=== PATIENT | male | born 1990 | race Caucasian/White ===

== ENCOUNTER 2024-07-17 12:37 | Outpatient (AMB) | payer OTHER, SELFPAY ==
--- OUTSIDE RECORDS SUMMARY | 2024-07-17 12:38 | XMS_ITS | Continuity of Care Document ---
Author Organization [facility] em Address Unknown Care Team Providers Care Revenue Accounting Manager Name Role Phone Rosanne Tuttle MD Primary Care Physician ( [phone] Encounter [facility] [place] Date(s): 04/30/23 - 06/04/23 [facility] Attending Physician: Bessy Owen MD Admitting Physician: Bessy Owen MD Referring Physician: Lien Palomo NP Allergies, Adverse Reactions, Alerts Substance Reaction Severity Status cortisone Form of cyst Active Immunizations Given and Recorded Vaccine Date Status Refusal Reason tetanus/diphtheria/pertussis, acel(Tdap) 07/10/10 Given Medications Allopurinol Refills 0, Maintenance, 12/25/21 8:49:00 EST, Partial fill upon patient request if the prescriptionis for a schedule II opioid drug. Start Date: 12/25/21 Status: Ordered Amoxicillin By Mouth, Maintenance, 5 days, 12/25/21 8:49:00 EST Start Date: 12/25/21 Status: Ordered levothyroxine 0.025 mg oral tablet 1 tablet = 25 mcg, By Mouth, Daily, 0 Refills, Maintenance, 12/25/21 8:48:00 EST, Partial fill uponpatient request if the prescription is for a schedule II opioid drug. Start Date: 12/25/21 Status: Ordered Problem List Condition Confirmation Course Effective Dates Status H ealth Status Informant Carbuncle and furuncle Confirmed Active Adult hypothyroidism Confirmed Active Obese class II Confirmed Active Social History Social History Type Response Smoking Status 5-9 cigarettes (betw een 1/4 to 1/2 pack)/day in last 30 days entered on: 02/06/19 Sex Patient Care team information Care Team Personnel Name: Rosanne Tuttle MD Position: S Physician - Primary Care Member Role: PCP Address: Address: [address] [place] [address] [place] [address]- Care Team Related Persons Name: SHREE DIETRICH Address: home [address] [place] [address] Name: BRADLEY MEYER Address: home [address] [place] [address]
--- OUTSIDE RECORDS SUMMARY | 2024-07-17 12:38 | XMS_ITS | Continuity of Care Document ---
Author Organization [facility] Address [address] [place] [address]- Care Team Providers Care Crystal Evaluator Name Role Phone Parag PETER, Rosanne Mcmullen Primary Care Physician Encounter [facility] [place] Date(s): 12/17/21 - 01/16/22 [facility] [address] [place] [address]- Allergies, Adverse Reactions, Alerts Substance Reaction Severity [...] Date: 12/25/21 Status: Ordered Problem List Condition Effective Dates Status Health Status Inform ant Carbuncle and furuncle(Confirmed) Active Adult hypothyroidism(Confirmed) Active Obese class II(Confirmed) Active Social History Social History Type Response Smoking Status 5-9 cigarettes (betw een 1/4 to 1/2 pack)/day in last 30 days entered on: 02/06/19 Sex
--- OUTSIDE RECORDS SUMMARY | 2024-07-17 12:38 | XMS_ITS | Continuity of Care Document ---
Author Organization [facility] Address [address] [place] [address]- Care Team Providers Care Wire Wheeler Name Role Phone Parag PETER, Rosanne Mcmullen Primary Care Physician Encounter [facility] [place] Date(s): 12/25/21 - 01/24/22 [facility] [address] [place] [id number] Attending Physician: Maicol Delgado Admitting Physician: Maicol Delgado Referring Physician: AdmtrMaicol Allergies, Adverse Reactions, Alerts Substance Reaction Severity [...]
--- OUTSIDE RECORDS SUMMARY | 2024-07-17 12:38 | XMS_ITS | Continuity of Care Document ---
Author Organization [facility] em Address Unknown Care Team Providers Care Machine Oiler Name Role Phone Rosanne Tuttle MD Primary Care Physician [place] [facility] [place]s): 05/05/23 - 06/04/23 [facility] Attending Physician: Maicol Delgado Admitting Physician: Maicol Delgado Referring Physician: Maicol Delgado Allergies, Adverse Reactions, Alerts Substance Reaction Severity [...] Primary Care Member Role: PCP Address: Address: [address] [place] [address] [address] [place] [address]- Care Team Related Persons Name: SHREE DIETRICH Address: home [address] [place] [address] Name: BRADLEY MEYER Address: [address] [place] [address]
--- NOTE | 2024-07-17 12:42 | MHC.OFFWIV ---
Intake Vital Signs 07/17/24 12:49 Height 6 ft 7 in Weight 328 lb 6 oz BMI 37.0 BP 142/84 H Blood Pressure Location Rt brachial Position Sitting Respiration 16 Pulse 72 Pulse Source Pulse Oximeter Temp 97.9 F Temp Source Oral Pulse Oximetry (%) 98 Oxygen Delivery Method Room Air Intake Visit Reasons: est/ cold symptoms/chest congestion Intake Note: Patient complaining of a cold, coughing, runny nose, coughing up green phlegm, bodyaches, fatigue x 1 week and patient also took a covid test at home and was negative on wednesday. Allergies cortisone Allergy (Severe, Verified 07/17/24 13:05) Hives Medication List - Last Reconciled 07/17/24 by Kavita Spence, LINSEED OIL REFINER- levothyroxine 125 mcg PO DAILY valsartan 80 mg PO DAILY HPI HPI Comments History of Present Illness Details 34-year-old male everyday smoker here today for complaints of upper respiratory symptoms that started about 1 week ago. Sudden onset nasal drainage , sore throat, fatigue. Sx have mildly improved since onset but cont to feel sick Today most bothersome sx is bloody nasal drainage with thick purulent discharge, productive cough Endorses some pain in his mid chest with coughing Using mucinex, sudafed and supportive care w/o relief Home COVID test negative x3 Exam: Awake alert NAD mildly ill appearing Sclera and conjunctiva clear bilat Nares blood-tinged mucoid discharge, turbinates pale and edematous, no sinus tenderness with palpation bilat TM intact and clear bilat MMM, pharynx with postnasal drip RRR LS Ins/exp wheeze, coarse throughout [phone] [facility] [place] Plan: Viral swab obtained today negative Stat chest x-ray negative Pt called with results at 1630. Tx with augementin, tessalon and Albuterol. Smoking cessation Edu to fu if no improvement or worsening of his sx. This note is constructed using voice recognition software. While every effort has been made to ensure accuracy in recycling crew supervisor, still errors may have been included Sometimes, these errors may affect the content or meaning of the given sentence . Total time spent caring for the patient today was 30 minutes. This includes time spent before the visit reviewing the chart, time spent during the visit, and time spent after the visit on documentation Physical Exam Vital Signs: Last Vital Signs Temp 97.9 F 07/17/24 12:49 Pulse 72 07/17/24 12:49 Resp 16 07/17/24 12:49 BP 142/84 H 07/17/24 12:49 Pulse Ox 98 07/17/24 12:49 Oxygen Delivery Method Room Air 07/17/24 12:49 BMI result Body Mass Index 37.0 Results Reviewed Results Reviewed: [facility] Primary Care [facility] [place] [address] XRay Report Signed Patient: Mani Fisher MR#: [id number] : 1990 Acct:[id number] Age/Sex: 34 / M ADM Date: 07/17/24 [facility]: Kavita HAMILTON Ordering Physician: Kavita Spence Date of Service: 07/17/24 Procedure(s): XR chest 2V Accession Number(s): [id number] cc: Kavita Spence~ EXAMINATION: XR CHEST CLINICAL INFORMATION: Other specified symptoms and signs involving the circulatory COMPARISON: None available. TECHNIQUE: 2 views of the chest were obtained. FINDINGS: No significant abnormality is noted involving the heart, lungs, mediastinum, bony thorax or soft tissues. XR/XR chest 2V IMPRESSION: Unremarkable examination. Electronically signed by: Alonso Wheat MD 07/17/2024 03:29 PM EDT Dictated By: Alonso Wheat MD Signed By: <Electronically signed by Alonso Wheat MD in OV> 07/17/24 1529 DD/ 1358 TD/TT: 07/17/24 1405 Lockstitcher: ROSALES RUN: 07/17/24 1629 PAGE 1 [facility] [address] [place] [id number] Rental Clerk Tool And Equipment: Sha Gee M.D. Specimen Inquiry Name: Mani Fisher Age/Sex: 34/M : 1990 Unit#: [id number] Attend Dr: Kavita SpenceP-BC Re07/17/24 Status: REG REF [facility] Disch: SPEC : [id number] ANDREA: 07/17/24 STATUS: COMP REQ : [id number] RECD: 07/17/24-[address] [facility] DR: Kavita Spence LINSEED OIL REFINER-BC COMP: 07/17/24 ENTERED: 07/17/[address] [facility] DR: ORDERED: SARS/FLU/RSV Test Result Flag Reference Influenza A PCR NEGATIVE Negative Influenza B PCR NEGATIVE Negative RSV RNA QualPCR NEGATIVE Negative SARSCOV2 RT-PCR NEGATIVE Negative All test results must be correlated with clinical findings. Negative results do not preclude SARS-CoV2, influenza A virus, influenza B virus and/or RSV infection and should not be used as the sole basis for treatment or other patient management decisions. Negative results must be combined with clinical observations, patient history, and epidemiological information. This test has not been evaluated for monitoring treatment of infection. This test has been authorized by the FDA under an Emergency Use Authorization (EUA) for use by authorized laboratories. Testing performed on the [employer] GeneXpert utilizing real-time RT-PCR. All SARS CoV2 and positive influenza A/B results are reported to [facility]. END OF REPORT Assessment & Plan Assessment & Plan (1) Acute bacterial sinusitis: Code(s): J01.90 - Acute sinusitis, unspecified; B96.89 - Other specified bacterial agents as the cause of diseases classified elsewhere Plan: . (2) URI (upper respiratory infection): Code(s): J06.9 - Acute upper respiratory infection, unspecified Qualifiers: URI type: unspecified viral URI Qualified Code(s): J06.9 - Acute upper respiratory infection, unspecified Plan: . (3) Tobacco dependence: Code(s): F17.200 - Nicotine dependence, unspecified, uncomplicated Plan: . Orders: Orders SARS-CoV2/FLU/RSV Today R09.89 - Other specified symptoms and signs involving the circulatory and respiratory systems XR chest 2V Today R09.89 - Other specified symptoms and signs involving the circulatory and respiratory systems Medications: New benzonatate 100 mg PO TID 10 days PRN 30 caps 1RF cough amoxicillin-pot clavulanate 875-125 mg 1 tab PO BID 7 days 14 tabs 0RF albuterol sulfate 90 mcg/actuation 2 puffs inhalation Q4-6H 30 days PRN 8.5 grams 0RF shortness of breath or wheezing Patient Instructions: Smoking Cessation How to Quit There are a lot of ways to quit smoking and many resources to help you. Family members, friends, and co-workers may be supportive or encouraging, but to be successful the desire and commitment to quit must be your own. Most people who have been able to successfully quit smoking made at least one unsuccessful attempt in the past. Try not to view past attempts to quit as failures, but rather as learning experiences. Stopping smoking or using smokeless tobacco is difficult, but anyone can do it. Know the symptoms to expect when you stop. Common symptoms include: ? An intense craving for nicotine ? Anxiety, tension, restlessness, frustration, or impatience ? Difficulty concentrating ? Drowsiness or trouble sleeping, as well as bad dreams and nightmares ? Drowsiness and trouble sleeping ? Headaches ? Increased appetite and weight gain ? Irritability or depression How severe your symptoms are depends on how long you smoked and how many cigarettes you smoked each day. Feel ready to quit? ? First and foremost, set a quit date and quit completely on that day. Before your quit date, you may begin reducing your cigarette use. But remember, there is no safe level of cigarette smoking. ? List the reasons why you want to quit. Include both short- and long-term benefits. ? Identify the times you are most likely to smoke. For example, do you tend to smoke when feeling stressed or down? When out at night with friends? While drinking coffee or alcohol? When bored? While driving? Right after a meal or sex? During a work break? While watching TV or playing cards? When you are with other smokers? ? Let all of your friends, family, and co-workers know of your plan to stop smoking and your quit date. Just being aware that they know what you're going through can be helpful, especially when you are grumpy. ? Get rid of all your cigarettes just before the quit date, and clean out anything that smells like smoke, such as clothes and furniture. Make a plan about what you will do instead of smoking at those times when you are most likely to smoke. ? Be as specific as possible. For example, drink tea instead of coffee -- tea may not trigger the desire for a cigarette. Or, take a walk when you feel stressed. ? Remove ashtrays and cigarettes from the car. Place pretzels or hard candies there instead. Pretend-smoke with a straw. ? Find activities that focus your hands and mind but are not taxing or fattening. Computer games, solitaire, knitting, sewing, and crossword puzzles may help. ? If you normally smoke after eating, find other ways to end a meal. Play a tape or CD, eat a piece of fruit, get up and make a phone call, or take a walk (a good distraction that also rodriguez calories). Make other changes in your lifestyle. ? Change your daily schedule and habits. Eat at different times or eat several small meals instead of three large ones. Sit in a different chair or even a different room. ? Satisfy your oral habits by eating celery or other low-calorie snack, chewing sugarless gum, or sucking on a cinnamon stick. ? Go to public places and restaurants where smoking is prohibited or restricted. ? Eat regular meals and don't eat too much candy or sweet things. ? Get more exercise. Take walks or ride a bike. Exercise helps relieve the urge to smoke. Set short-term quitting goals and reward yourself when you meet them. ? Every day, put the money you normally spend on cigarettes in a jar. Then buy something pleasurable after a period of time. ? Try not to think about all the days ahead you will need to avoid smoking. Take it one day at a time. ? Even one puff or one cigarette will make your desire for more cigarettes even stronger. However, it is normal to make mistakes. So even if you have one cigarette, you don't need to take the next one. Other tips to help you quit smoking and stick to it: ? Enroll in a smoking cessation program (hospitals, health departments, community centers, and work sites often offer programs). Learn about self-hypnosis or other techniques. ? Ask your health care provider about prescription medications that are safe and appropriate for you. ? Find out about nicotine patches, gum, and sprays. The [place] [employer]'s web site -- www.cancer.org -- is an excellent resource for smokers who are trying to quit, and the [employer] [place] [employer] can help some smokers kick the habit. Above all, don't get discouraged if you aren't able to quit smoking the first time. Nicotine addiction is a hard habit to break. Try something different next time. Develop new strategies, and try again. Many people take several attempts to finally kick the habit. Coding Level of Care Code Est Pt Level 4 (93826) Diagnoses Acute bacterial sinusitis J01.90; B96.89 Viral upper respiratory tract infection J06.9 URI type: unspecified viral URI Tobacco dependence F17.200
[2024-07-17 12:49] VITALS: BP 142/84; PULSE 72; RESP 16; TEMP 36.6; O2SAT 98; BMI 37.0
== END 2024-07-17 17:05 | disposition home or self-care (01) ==
PROVIDERS: Visit Provider Nurse Practitioner Family
DX: J01.90 Acute sinusitis, unspecified (principal); B96.89 Other specified bacterial agents as the cause of diseases classified elsewhere; J06.9 Acute upper respiratory infection, unspecified; F17.200 Nicotine dependence, unspecified, uncomplicated

== ENCOUNTER → 2024-07-17 12:37 | Outpatient (BNVA) | payer OTHER, SELFPAY | PROVIDERS: Visit Provider Nurse Practitioner Family ==

== ENCOUNTER 2024-07-17 13:45 | Outpatient (REF) | payer OTHER, SELFPAY ==
--- NOTE | ~2024-07-17 | XR_ITS ---
EXAMINATION: XR CHEST CLINICAL INFORMATION: Other specified symptoms and signs involving the circulatory COMPARISON: None available. TECHNIQUE: 2 views of the chest were obtained. FINDINGS: No significant abnormality is noted involving the heart, lungs, mediastinum, bony thorax or soft tissues. XR/XR chest 2V IMPRESSION: Unremarkable examination. Electronically signed by: Alonso Wheat MD 07/17/2024 03:29 PM EDT RP
[2024-07-17 16:19] LABS: Influenza A PCR NEGATIVE (Negative); Influenza B PCR NEGATIVE (Negative); Resp Syncy Virus RNA Qual PCR NEGATIVE (Negative); SARS COV2 PCR INHOUSE NEGATIVE (Negative)
== END 2024-07-17 13:46 | disposition home or self-care (01) ==
LOC: HO.HMGCX 13:45
PROVIDERS: Visit Provider Nurse Practitioner Family
DX: R09.89 Other specified symptoms and signs involving the circulatory and respiratory systems (principal)
CPT/HCPCS: 0241U; 71046; 99212

== ENCOUNTER → 2024-08-14 13:27 | Outpatient (AMB) | payer OTHER, SELFPAY ==
--- NOTE | 2024-08-14 13:35 | AM.OFFWIN_ITS ---
Intake Vital Signs 08/14/24 13:41 08/14/24 14:21 Height 6 ft 7 in Weight 323 lb 4 oz BMI 36.4 BP 150/100 H 160/100 H Blood Pressure Location Lt brachial Rt brachial Position Sitting Sitting Respiration 16 Pulse 87 Pulse Source Pulse Oximeter Temp 97.9 F Temp Source Oral Pulse Oximetry (%) 97 Oxygen Delivery Method Room Air Intake Visit Reasons: continuous headaches Intake Note: patient here for continuous headaches every day for a week. Patient Tobacco Use Status: Current everyday Tobacco user Supervisor Powder And Primer Canning Required: No Allergies cortisone Allergy (Severe, Verified 08/14/24 15:10) Hives Medication List - Last Reconciled 08/14/24 by Kavita Spence, DIRECTOR ASSET- albuterol sulfate 90 mcg/actuation 2 puffs inhalation Q4-6H PRN 30 days levothyroxine 125 mcg PO DAILY valsartan 80 mg PO DAILY Do you need a note to return to daycare/school/sports/work: No HPI HPI Comments History of Present Illness Details 34-year-old male current smoker with hyp ertension and hypothyroidism here today with complaints of a headache that started 8 days ago, affecting the right side of his head only. Went to [facility] ED a few days ago, was given fluids and told to take APAP. He was also given compazine. They did not order imaging. I do not have records of this encounter. Describes as pressure and burning. Hurts so bad 11/10 pain, cannot get out of bed. Worse in the AM and late at night Vision blurred on right side, he feels very slow and almost like he is confused. Reports hx of cluster headaches and migraines in the past; this was many years ago Did vomit one time before the ED visit but none since this time. Headache right now is a 4/10 c/o occasional palpitations Denies fever, chills, trauma, pulsatile tinnitus, loss of function. Tried APAP which helps a little bit. He is taking all meds as directed, including BP meds. He denies any stimulants other than caffeine and tobacco. Exam: Awake, alert Atraumatic + photophobia, Mild aniscoria R smaller than L, horizontal nystagmus TM intact, mild erythema bilat Neck FROM Slow processing, closing eyes to find words, GARCIA x 4, c/o dizziness w/ position change only, reports as mild otherwise normal neuro exam BP recheck 160/100 Plan: ED eval and tx. Offered and declined transport. Asked if someone could be called to bring him, he declined. Expect called at 1418 to [facility] [place] Pt wishes to est care for PCP, advised to have this arranged after his ED eval and tx. Confirmed he arrived at [facility] and is under going workup. This note is constructed using voice recognition software. While every effort has been made to ensure accuracy in supply chain design manager, still errors may have been included Sometimes, these errors may affect the content or meaning of the given sentence . Total time spent caring for the patient today was 45 minutes. This includes time spent before the visit reviewing the chart, time spent during the visit, and time spent after the visit on documentation PFSH Social History Patient Tobacco Use Status: Current everyday Tobacco user Advance Directives: No Advance Directives Information Provided: Yes Physical Exam Vital Signs: Last Vital Signs Temp 97.9 F 08/14/24 13:41 Pulse 87 08/14/24 13:41 Resp 16 08/14/24 13:41 BP 160/100 H 08/14/24 14:21 Pulse Ox 97 08/14/24 13:41 Oxygen Delivery Method Room Air 08/14/24 13:41 BMI result Body Mass Index 36.4 Assessment & Plan Assessment & Plan (1) Hypertension: Code(s): I10 - Essential (primary) hypertension Qualifiers: Hypertension type: primary hypertension Qualified Code(s): I10 - Essential (primary) hypertension Plan: . (2) New onset headache: Code(s): R51.9 - Headache, unspecified Plan: . (3) Abnormal neurological exam: Code(s): R29.90 - Unspecified symptoms and signs involving the nervous system Plan: . Plan . Coding Level of Care Code Est Pt Level 5 (27966) Diagnoses Primary hypertension I10 Hypertension type: primary hypertension New onset headache R51.9 Abnormal neurological exam R29.90
[2024-08-14 13:41] VITALS: BP 150/100; PULSE 87; RESP 16; TEMP 36.6; O2SAT 97; BMI 36.4
[2024-08-14 14:21] VITALS: BP 160/100
== END ==
PROVIDERS: Visit Provider Nurse Practitioner Family
DX: I10 Essential (primary) hypertension (principal); R51.9 Headache, unspecified; R29.90 Unspecified symptoms and signs involving the nervous system

== ENCOUNTER → 2024-08-14 13:27 | Outpatient (BNVA) | payer OTHER, SELFPAY | PROVIDERS: Visit Provider Nurse Practitioner Family | DX: R51.9 Headache, unspecified (principal); I10 Essential (primary) hypertension; R29.90 Unspecified symptoms and signs involving the nervous system | CPT/HCPCS: 99212 ==

== ENCOUNTER 2024-08-14 14:47 | Emergency (ER) | payer OTHER, SELFPAY ==
--- NOTE | ~2024-08-14 | CT_ITS ---
EXAMINATION: CT HEAD WITHOUT CONTRAST CLINICAL INFORMATION: Horizontal nystagmus. COMPARISON: None available. TECHNIQUE: Contiguous axial imaging was performed from the skull base to vertex without intravenous administration of contrast. This CT examination was performed using dose optimization techniques as appropriate, variously including the following: *Automated exposure control *Adjustment of mA and/or kV according to patient size (this includes techniques or standardized protocols for targeted exams where dose is matched to indication/reason for exam; i.e. extremities or head) *Use of iterative reconstruction technique DLP: 801 mGy-cm FINDINGS: There is no mass hemorrhage or cerebral edema The ventricles and basal cisterns are normal. There is no extra-axial fluid collection. Subcutaneous soft tissues normal. Bones/calvarium: Normal. CT/CT head/brain wo IV con IMPRESSION: No acute intracranial pathology. Electronically signed by: Neal Connell MD 08/14/2024 05:03 PM EDT
--- NOTE | ~2024-08-14 | CT_ITS ---
EXAMINATION: CT CERVICAL SPINE WITHOUT CONTRAST CLINICAL INFORMATION: Headache. Horizontal nystagmus COMPARISON: None available. TECHNIQUE: CT scan of the cervical spine performed reconstruction imaging performed at the acquisition workstation. This CT examination was performed using dose optimization techniques as appropriate, variously including the following: *Automated exposure control *Adjustment of mA and/or kV according to patient size (this includes techniques or standardized protocols for targeted exams where dose is matched to indication/reason for exam; i.e. extremities or head) *Use of iterative reconstruction technique DLP: 715 mGy-cm FINDINGS: Exam is partially limited by image degrading motion artifact vertebral bodies are normally aligned with normal height. Mild degenerative disc changes present at the C5-C6 level manifested by endplate osteophytes. Facets normal. Surrounding bone and soft tissues unremarkable. CT/CT cervical spine wo IV con IMPRESSION: Mild cervical spondylosis. No acute abnormality Fleischner guidelines were followed. Electronically signed by: Neal Connell MD 08/14/2024 05:01 PM EDT
[2024-08-14 15:08] VITALS: BP 166/107; PULSE 83; RESP 18; TEMP 36.8; O2SAT 98; BMI 36.5
--- NOTE | 2024-08-14 15:08 | ED.GENADULT ---
HPI - General Adult General Chief complaint: Headache Stated complaint: Headache 1 week, high BP Time Seen by Provider: 08/15/24 00:20 Source: patient Mode of arrival: ambulatory Limitations: no limitations History of Present Illness ED Provider: ora CLANCY narrative: Patient with history of remote migraines comes here for 8 days of right-sided headache slight light sensitivity no head injury no fever no chills no sinus no weakness or paresthesia Related Data Home Medications ?Medication ?Instructions ?Recorded ?Confirmed levothyroxine 125 mcg tablet 125 mcg PO DAILY 07/17/24 08/14/24 valsartan 80 mg tablet 80 mg PO DAILY 07/17/24 08/14/24 Previous Rx's ?Medication ?Instructions ?Recorded albuterol sulfate 90 mcg/actuation 2 puff inhalation Q4-6H PRN 07/17/24 aerosol inhaler shortness of breath or wheezing 30 days #8.5 grams mfkjsehoyt-mujktlcoudnyd-arbzcjqk 1 tab PO Q6H PRN haeadace #20 tabs 08/15/24 50 mg-325 mg-40 mg tablet Allergies Allergy/AdvReac Type Severity Reaction Status Date / Time cortisone Allergy Severe Hives Verified 08/14/24 15:10 Review of Systems Review of Systems: Yes all other systems are reviewed and are negative [facility] Social History Social History Patient Tobacco Use Status: Current everyday Tobacco user Advance Directives: No Advance Directives Information Provided: Yes Physical Exam ED Vital Signs: Vital Signs - 24 hr 08/14/24 15:08 08/14/24 22:41 Temperature 98.3 F 97.5 F Pulse Rate 83 74 Respiratory Rate 18 14 Blood Pressure 166/107 H 153/95 H Pulse Oximetry 98 99 Oxygen Delivery Method Room Air Room Air BMI result Body Mass Index 36.5 Appearance: Alert. Oriented X3. No acute distress. Eyes: PERRLA, No Nystagmus ENT: Pharynx normal. Oral Mucosa moist no temporal artery tenderness Neck: Normal inspection. Neck supple. CVS: Normal heart rate and rhythm. Pulses normal. Respiratory: No respiratory distress. Equal air entry bilateral, no wheezing/rales/rhonchi Abdomen: Soft and nontender. Bowel sounds are present, no mass palpable, no CVA tenderness Skin: Skin warm and dry. Normal skin color. Normal skin turgor. Extremities: No lower extremity edema. No calf tenderness Neuro: Oriented X 3. No motor deficit. No sensory deficit.No cerebellar signs , cranial nerves II-XII intact Course Course Course Narrative: RME performed by Teri Bach PA-C. Patient is a 34 year old assigned male at presenting to the emergency department with a headache, high blood pressure, and dizziness. Patient states he has significantly worsening head pain and high blood pressure. Detailed physical exam and review of systems are deferred to the pest control service technician. EKG, labs, imaging, and swabs ordered. Patient placed back in the waiting room pending room availability and results. Medical Decision Making Medical Decision Making MDM Narrative: CT scan of the head and C-spine negative labs were stable patient likely with migraine headache recurrence will prescribe Fioricet Lab Data [facility] Lab Attestation statement: I reviewed the patient's lab results. 08/14/24 15:38 08/14/24 15:38 Labs: Lab Results 08/14/24 Range/Units 15:38 WBC 9.1 (4.8-10.8) X10*3/uL RBC 4.98 (4.60-5.80) X10*6/uL Hgb 16.2 (14.0-18.0) g/dl Hct 44.6 (42.0-52.0) % MCV 89.6 (80.0-98.0) fL MCH 32.5 (27.0-33.0) pg MCHC 36.3 H (31.0-36.0) g/dl RDW 12.2 (11.0-16.0) % Plt Count 212 (160-400) X10*3/uL MPV 9.6 (9.4-12.4) fL Immature Gran % (Auto) 0.3 (0.0-0.4) % Neut % (Auto) 67.3 (45-73) % Lymph % (Auto) 23.3 (20-40) % [place] % (Auto) 6.3 (2-11) % Eos % (Auto) 2.0 (0-4) % Baso % (Auto) 0.8 (0-2) % Lymph # (Auto) 2.1 (1.2-4.9) X10*3/uL [place] # (Auto) 0.6 (0.1-1.2) X10*3/uL Eos # (Auto) 0.2 (0.0-0.4) X10*3/uL Baso # (Auto) 0.1 (0.0-0.2) X10*3/uL Abs Immat Gran (auto) 0.03 (0.00-0.03) X10*3/uL Absolute Neuts (auto) 6.1 (2.0-8.3) x10*3/uL Absolute Nucleated RBC 0.000 (0.0-0.012) X10*3/uL Nucleated RBC % (auto) 0.0 (0.0-0.2) /100WBC Sodium 139 (135-145) mmol/L Potassium 4.0 (3.3-5.1) mmol/L Chloride 104 (96-108) mmol/L Carbon Dioxide 26 (22-29) mmol/L Anion Gap 13 (12-20) BUN 9 (9-16) mg/dL Creatinine 0.79 (0.5-1.4) mg/dL Estim Creat Clear Calc 212.1 Estimated GFR > 60 Random Glucose 117 H (60-115) mg/dL Calcium 10.3 H (8.4-10.2) mg/dL Magnesium 1.9 (1.6-2.6) mg/dL Total Bilirubin 1.1 H (0.0-1.0) mg/dL AST 37 (5-37) U/L ALT 61 H (0-40) U/L Alkaline Phosphatase 78 (39-117) U/L Total Protein 8.3 H (6.5-8.0) g/dL Albumin 4.9 (3.5-5.0) g/dL TSH 1.19 (0.32-4.0) uIU/mL Influenza Type A (PCR) NEGATIVE (Negative) Influenza Type B (PCR) NEGATIVE (Negative) RSV RNA Qual (PCR) NEGATIVE (Negative) SARS-CoV-2 RNA (RT-PCR) NEGATIVE (Negative) Discharge Plan Discharge Clinical Impression: Migraine Patient Disposition: Home, Self-Care Instructions: Migraine Headache (ED) Additional Instructions: Rest at home Take medication for headache as prescribed Follow up with your PCP Prescriptions: New ondbahgoxi-tgcsomszyksnk-xkaw 50-325-40 mg tablet 1 tab PO Q6H PRN (Reason: haeadace) Qty: 20 0RF No Action levothyroxine 125 mcg tablet 125 mcg PO DAILY valsartan 80 mg tablet 80 mg PO DAILY albuterol sulfate 90 mcg/actuation HFA aerosol inhaler 2 puff inhalation Q4-6H PRN (Reason: shortness of breath or wheezing) 30 Days Qty: 8.5 0RF Print Language: Chinese
--- NOTE | 2024-08-14 15:10 | ECG_ITS ---
Test Reason : pain, htn Blood Pressure : / mmHG Vent. Rate : 076 BPM Atrial Rate : 076 BPM P-R Int : 168 ms QRS Dur : 094 ms QT Int : 394 ms P-R-T Axes : 039 -22 006 degrees QTc Int : 443 ms Normal sinus rhythm Moderate voltage criteria for LVH, may be normal variant ( R in aVL , Lucio product ) Nonspecific T wave abnormality Abnormal ECG No previous ECGs available Referred By: Teri Bach Electronically Signed By:Armen Rivas
[2024-08-14 15:43] LABS: MANUAL DIFF FLAG NO
[2024-08-14 15:46] LABS: Basophils Absolute Auto 0.1 X10*3/uL (0.0-0.2); Basophils Percent Auto 0.8 % (0-2); Eosinophils Absolute Auto 0.2 X10*3/uL (0.0-0.4); Hematocrit 44.6 % (42.0-52.0); Hemoglobin 16.2 g/dl (14.0-18.0); Imm Gran Abs Auto 0.03 X10*3/uL (0.00-0.03); Imm Gran Pct Auto 0.3 % (0.0-0.4); Lymphocytes Absolute Auto 2.1 X10*3/uL (1.2-4.9); Lymphocytes Percent Auto 23.3 % (20-40); Mean Corpuscular HGB Conc 36.3 g/dl (31.0-36.0); Mean Corpuscular Hemoglobin 32.5 pg (27.0-33.0); Mean Corpuscular Volume 89.6 fL (80.0-98.0); Mean Platelet Volume 9.6 fL (9.4-12.4); Monocytes Absolute Auto 0.6 X10*3/uL (0.1-1.2); Monocytes Percent Auto 6.3 % (2-11); Neutrophils Absolute Auto 6.1 x10*3/uL (2.0-8.3); Neutrophils Percent Auto 67.3 % (45-73); Platelet Count 212 X10*3/uL (160-400); Red Blood Count 4.98 X10*6/uL (4.60-5.80); Red Cell Distribution Width 12.2 % (11.0-16.0); White Blood Count 9.1 X10*3/uL (4.8-10.8)
[2024-08-14 16:01] LABS: Alanine Aminotransferase 61 U/L (0-40); Albumin Level 4.9 g/dL (3.5-5.0); Alkaline Phosphatase 78 U/L (39-117); Anion Gap 13 (12-20); Aspartate Amino Transferase 37 U/L (5-37); Bilirubin Total 1.1 mg/dL (0.0-1.0); Blood Urea Nitrogen 9 mg/dL (9-16); Calcium 10.3 mg/dL (8.4-10.2); Carbon Dioxide 26 mmol/L (22-29); Chloride 104 mmol/L (96-108); Creatinine Clr Calc Pharmacy 212.1; Estimated Glomerular Filt Rate > 60; Glucose Random 117 mg/dL (60-115); Magnesium 1.9 mg/dL (1.6-2.6); Sodium 139 mmol/L (135-145); Total Protein 8.3 g/dL (6.5-8.0)
[2024-08-14 16:18] LABS: TSH reflex Free T4 1.19 uIU/mL (0.32-4.0)
[2024-08-14 16:22] LABS: Influenza A PCR NEGATIVE (Negative); Influenza B PCR NEGATIVE (Negative); Resp Syncy Virus RNA Qual PCR NEGATIVE (Negative); SARS COV2 PCR INHOUSE NEGATIVE (Negative)
--- NOTE | 2024-08-14 21:30 | PC.NURSE ---
called in WR with no answer.
[2024-08-14 22:41] VITALS: BP 153/95; PULSE 74; RESP 14; TEMP 36.4; O2SAT 99
[2024-08-15] MEDS: Butalb/Acetamin/Caff 50/325/40 TABLET 1 TAB PO (00:42)
[2024-08-15 00:45] VITALS: BP 153/95; PULSE 74; RESP 14; TEMP 36.4; O2SAT 99
== END 2024-08-15 00:53 | disposition home or self-care (01) ==
PROVIDERS: Physician Assistant Medical; Emergency Provider Internal Medicine
DX: G43.909 Migraine, unspecified, not intractable, without status migrainosus (principal); I10 Essential (primary) hypertension; R07.9 Chest pain, unspecified; Z03.818 Encounter for observation for suspected exposure to other biological agents ruled out
CPT/HCPCS: 0241U; 36415; 70450; 72125; 80053; 83735; 84443; 85025; 93005; 99284

== ENCOUNTER → 2024-08-14 15:10 | Outpatient (BNV) | payer OTHER, SELFPAY | PROVIDERS: Emergency Provider Internal Medicine; Visit Provider Internal Medicine Cardiovascular Disease | DX: R94.31 Abnormal electrocardiogram [ECG] [EKG] (principal); I10 Essential (primary) hypertension | CPT/HCPCS: 93010 ==